=== PATIENT | male | born 1990 | race African-American/Black ===

== ENCOUNTER 2020-05-03 04:00 | Emergency (ER) | payer SELFPAY ==
[~2020-05-03] VITALS: Ht 172.7 cm; Wt 73.0 kg
[2020-05-03] MEDS ORDERED: LORAZEPAM 1MG TABLET PO ONE (04:15)
[2020-05-03 05:48] VITALS: BP 128/92
== END 2020-05-03 05:30 | disposition home or self-care (01) ==
LOC: ER 04:00
DX: F41.1 Generalized anxiety disorder (principal); R00.2 Palpitations; F17.210 Nicotine dependence, cigarettes, uncomplicated
CPT/HCPCS: 71045; 93005; 99283

== ENCOUNTER 2020-05-26 14:24 | Emergency (ER) | payer SELFPAY | END 2020-05-26 14:58 | disposition left against medical advice (07) | LOC: ER 14:24 | DX: Z53.21 Procedure and treatment not carried out due to patient leaving prior to being seen by health care provider (principal) ==